=== PATIENT | male | born 1975 | race Caucasian/White ===

== ENCOUNTER 2021-04-16 12:28 | Emergency (ER) | payer SELFPAY ==
[~2021-04-16] VITALS: Ht 177 cm; Wt 120.0 kg
--- NOTE | 2021-04-16 12:40 | ED Chest Pain ---
General Chief Complaint: Chest Pain Stated Complaint: CHEST PAIN Source: patient Exam Limitations: no limitations History of Present Illness Date Seen by Provider: Apr 16, 2021 Time Seen by Provider: 12:30 Initial Comments 45yoM with PMH of HTN coming in for 2 weeks of intermittent left sided non- radiating chest pain. Never had pain like this before. Nothing seems to change the pain. No history of cardiac disease. No prior history of DVT or PE. Only takes her blood pressure medicine daily. Does not have any associated shortness of breath, cough, abdominal pain, nausea, vomiting, diarrhea, fever, chills, weakness, numbness, rash, or any other concerns Allergies and Home Medications Allergies Coded Allergies: No Known Drug Allergies (Unverified , 04/16/21) Patient Home Medication List Home Medication List Reviewed: Yes Review of Systems Review of Systems Constitutional: No chills, No fever EENTM: No Blurred Vision Respiratory: Denies Cough Cardiovascular: Chest Pain Gastrointestinal: Denies Abdominal Pain Genitourinary: No Symptoms Reported Musculoskeletal: no symptoms reported Skin: no symptoms reported Psychiatric/Neurological: No Symptoms Reported Endocrine: No Symptoms Reported Hematologic/Lymphatic: No Symptoms Reported All Other Systems Reviewed Negative Unless Noted: Yes Past Nshcyop-Hldzen-Isibjy Hx Patient Social History Tobacco Use?: No Substance use?: No Alcohol Use?: No Past Medical History Surgeries: Yes Tonsillectomy Physical Exam Vital Signs Vital Signs - First Documented 04/16/21 12:39 Temp 36.0 Pulse 76 Resp 16 B/P (MAP) 163/99 (120) Pulse Ox 96 O2 Delivery Room Air Capillary Refill : Height, Weight, BMI Height: '" Weight: lbs. oz. kg; BMI Method: General Appearance: No Apparent Distress, WD/WN HEENT: PERRL/EOMI, Normal ENT Inspection, Pharynx Normal Neck: Full Range of Motion, Normal Inspection, Non Tender, Supple Respiratory: Chest Non Tender, Lungs Clear, Normal Breath Sounds, No Accessory Muscle Use, No Respiratory Distress Cardiovascular: Regular Rate, Rhythm, No Edema, Normal Peripheral Pulses Gastrointestinal: Normal Bowel Sounds, Non Tender, Soft; No Distended, No Guarding Extremity: Normal Capillary Refill, Normal Inspection, Normal Range of Motion, Non Tender, No Calf Tenderness, No Pedal Edema Neurologic/Psychiatric: Alert, No Motor/Sensory Deficits, Normal Mood/Affect Skin: Normal Color, Warm/Dry Lymphatic: No Adenopathy Progress/Results/Core Measures Results/Orders Lab Results Laboratory Tests Test 04/16/21 12:36 Range/Units White Blood Count 8.2 4.3-11.0 10^3/uL Red Blood Count 5.18 4.30-5.52 10^6/uL Hemoglobin 15.6 13.3-17.7 g/dL Hematocrit 45 40-54 % Mean Corpuscular Volume 87 80-99 fL Mean Corpuscular Hemoglobin 30 25-34 pg Mean Corpuscular Hemoglobin Concent 35 32-36 g/dL Red Cell Distribution Width 12.2 10.0-14.5 % Platelet Count 285 130-400 10^3/uL Mean Platelet Volume 9.0 9.0-12.2 fL Immature Granulocyte % (Auto) 0 % Neutrophils (%) (Auto) 66 42-75 % Lymphocytes (%) (Auto) 24 12-44 % Monocytes (%) (Auto) 7 0-12 % Eosinophils (%) (Auto) 2 0-10 % Basophils (%) (Auto) 1 0-10 % Neutrophils # (Auto) 5.4 1.8-7.8 X 10^3 Lymphocytes # (Auto) 2.0 1.0-4.0 X 10^3 Monocytes # (Auto) 0.6 0.0-1.0 X 10^3 Eosinophils # (Auto) 0.2 0.0-0.3 10^3/uL Basophils # (Auto) 0.1 0.0-0.1 10^3/uL Immature Granulocyte # (Auto) 0.0 0.0-0.1 10^3/uL Sodium Level 137 135-145 MMOL/L Potassium Level 3.8 3.6-5.0 MMOL/L Chloride Level 99 98-107 MMOL/L Carbon Dioxide Level 25 21-32 MMOL/L Anion Gap 13 5-14 MMOL/L Blood Urea Nitrogen 18 7-18 MG/DL Creatinine 0.92 0.60-1.30 MG/DL Estimat Glomerular Filtration Rate 88 BUN/Creatinine Ratio 20 Glucose Level 105 70-105 MG/DL Calcium Level 9.9 8.5-10.1 MG/DL Corrected Calcium 8.5-10.1 MG/DL Magnesium Level 2.1 1.6-2.4 MG/DL Total Bilirubin 0.7 0.1-1.0 MG/DL Aspartate Amino Transf (AST/SGOT) 34 5-34 U/L Alanine Aminotransferase (ALT/SGPT) 18 0-55 U/L Alkaline Phosphatase 96 40-136 U/L Troponin I < 0.30 <0.30 NG/ML Total Protein 8.4 H 6.4-8.2 GM/DL Albumin 4.8 H 3.2-4.5 GM/DL My Orders Orders - JERZY JACOME MD Cbc With Automated Diff (04/16/21 12:40) Magnesium (04/16/21 12:40) Chest 1 View Ap/Pa Only (04/16/21 12:40) Ekg Tracing (04/16/21 12:40) Comprehensive Metabolic Panel (04/16/21 12:40) O2 (04/16/21 12:40) Monitor-Rhythm Ecg Trace Only (04/16/21 12:40) Aspirin Tablet (Aspirin Tablet) (04/16/21 12:45) Ed Iv/Invasive Line Start (04/16/21 12:40) Troponin I Fs (04/16/21 12:40) Medications Given in ED Current Medications Medications Dose Ordered Sig/Guy Route Start Time Stop Time Status Last Admin Dose Admin Aspirin 325 mg ONCE ONCE PO 04/16/21 12:45 04/16/21 12:46 DC 04/16/21 12:50 325 MG Vital Signs/I&O 04/16/21 12:39 Temp 36.0 Pulse 76 Resp 16 B/P (MAP) 163/99 (120) Pulse Ox 96 O2 Delivery Room Air Progress Progress Note : Progress Note 45-year-old male with above history coming in due to chest pain. ABCs were intact and vitals were stable on presentation. Physical exam reassuring with no focal abnormalities. He has equal distal pulses and no neuro deficits. His heart score is 2 at maximum with the story and he is relatively low risk for a c ardiac event. EKG without any acute ischemic changes. An IV was placed and ASIC labs as well as cardiac biomarkers ordered. Chest x-ray ordered and interpreted by me showing no pneumothorax, normal cardiac silhouette, no obvious pneumonia. He was given full dose aspirin given the nature of his complaint. He is low risk for PE via [facility] criteria and is PERC negative. Initial ECG Impression Date: Apr 16, 2021 Initial ECG Impression Time: 12:26 Initial ECG Rate: 70 Initial ECG Rhythm: Normal Sinus Comment Narrow QRS, normal axis, no significant ST changes or T wave abnormalities Diagnostic Imaging Diagonstic Imaging: Xray Plain Films/CT/US/NM/MRI: chest Comments NAME: TOSHA KENDRICK [facility] REC#: [id number] PT STATUS: REG ER : 1975 PHYSICIAN: JERZY JACOME MD ADMIT DATE: 04/16/21/ER FS Draft Date of Exam:04/16/21 CHEST 1 VIEW AP/PA ONLY INDICATION: Chest pain COMPARISON: None available. TECHNIQUE: Single frontal radiograph of the chest dated 04/16/2021. FINDINGS: The cardiac silhouette is within normal limits in size. No significant pulmonary vascular congestion. The lungs are clear of focal pulmonary opacity. No pleural effusion. No pneumothorax. No acute osseous abnormality. IMPRESSION: No acute cardiopulmonary abnormality. Dictated on workstation # [id number] Dict: 04/16/21 1253 Trans: 04/16/21 1255 [facility] [id number] Interpreted by: MIGUELITO TERRELL MD Electronically signed by: Departure Impression Primary Impression: Chest pain Qualified Codes: R07.9 - Chest pain, unspecified Disposition: 01 HOME, SELF-CARE Condition: Stable Departure-Patient Inst. Decision time for Depature: 13:27 Referrals: WICHO MASON MD (PCP) Primary Care Physician KRISTY HOFF MD FACP [facility] Patient Instructions: Chest Pain (DC) Add. Discharge Instructions: You were seen in the department for chest pain. Your work-up has been unrevealing and it does not appear like you are actively having a heart attack. If you continue to have this pain, I do recommend you quickly follow-up with your primary care provider, and or call a print washer for further work-up such as a stress test. There is a print washer I do recommend in [place] and Dr. Hoff, whose number is in this paperwork. If you continue to have the symptoms, it would be a good thing to begin taking a baby aspirin daily. Work/School Note: Work Release Form Date Seen in the Emergency Department: Apr 16, 2021 Return to Work: Apr 17, 2021 Restrictions: No Restrictions JERZY JACOME MD Apr 16, 2021 12:40
[2021-04-16] MEDS ORDERED: ASPIRIN 325 MG (5 GR) TABLET PO ONE (12:45)
[2021-04-16 12:52] LABS: HEMATOCRIT 45 % (40-54); HEMOGLOBIN 15.6 g/dL (13.3-17.7); MEAN CORPUSCULAR HEMOGLOBIN 30 pg (25-34); MEAN CORPUSCULAR HGB CONC 35 g/dL (32-36); MEAN CORPUSCULAR VOLUME 87 fL (80-99); WHITE BLOOD COUNT 8.2 10^3/uL (4.3-11.0)
[2021-04-16 12:53] LABS: EOSINOPHILS % (AUTO) 2 % (0-10); LYMPHOCYTES % (AUTO) 24 % (12-44); MONOCYTES % (AUTO) 7 % (0-12); NEUTROPHILS % (AUTO) 66 % (42-75); PLATELET COUNT 285 10^3/uL (130-400)
[2021-04-16 12:54] LABS: BASOPHILS # (AUTO) 0.1 10^3/uL (0.0-0.1); BASOPHILS % (AUTO) 1 % (0-10); EOSINOPHILS # (AUTO) 0.2 10^3/uL (0.0-0.3); MONOCYTES # (AUTO) 0.6 X 10^3 (0.0-1.0); NEUTROPHILS # (AUTO) 5.4 X 10^3 (1.8-7.8)
--- NOTE | 2021-04-16 12:55 | Diagnostic Imaging Report ---
INDICATION: Chest pain COMPARISON: None available. TECHNIQUE: Single frontal radiograph of the chest dated 04/16/2021. FINDINGS: The cardiac silhouette is within normal limits in size. No significant pulmonary vascular congestion. The lungs are clear of focal pulmonary opacity. No pleural effusion. No pneumothorax. No acute osseous abnormality. IMPRESSION: No acute cardiopulmonary abnormality. Dictated by: Dictated on workstation # [id number]
[2021-04-16 13:18] LABS: ALANINE AMINOTRANSFERASE 18 U/L (0-55); ALBUMIN 4.8 GM/DL (3.2-4.5); ALKALINE PHOSPHATASE 96 U/L (40-136); BILIRUBIN,TOTAL 0.7 MG/DL (0.1-1.0); BUN/CREATININE RATIO 20; CALCIUM 9.9 MG/DL (8.5-10.1); CARBON DIOXIDE 25 MMOL/L (21-32); CHLORIDE 99 MMOL/L (98-107); CREATININE SERUM 0.92 MG/DL (0.60-1.30); GFR ESTIMATED 88; GLUCOSE 105 MG/DL (70-105); MAGNESIUM 2.1 MG/DL (1.6-2.4); POTASSIUM 3.8 MMOL/L (3.6-5.0); SODIUM 137 MMOL/L (135-145); TOTAL PROTEIN 8.4 GM/DL (6.4-8.2)
[2021-04-16 13:42] VITALS: BP 131/83
== END 2021-04-16 13:36 | disposition home or self-care (01) ==
LOC: ER FS 12:33
DX: R07.9 Chest pain, unspecified (principal); I10 Essential (primary) hypertension
CPT/HCPCS: 36415; 71045; 80053; 83735; 84484; 85025